=== PATIENT | female | born 1955 | race Caucasian/White ===

== ENCOUNTER 2024-02-19 12:07 | Emergency (ER) | payer MEDICARE, MEDICAID, SELFPAY ==
[2024-02-19 12:26] VITALS: BP 150/83; PULSE 78; TEMP 36.5; O2SAT 96; BMI 36.6
--- NOTE | 2024-02-19 12:40 | XR_ITS ---
The [address] [address] Patient Name: POLO REYES MRN: [id number] date: 1955 Sex: F Assigned Patient Location: ER Current Patient Location: ER Accession/Order Number: [id number] Exam Date: 02/19/2024 12:45 Report Date: 02/19/2024 13:06 At the request of: JAMES MOCK Procedure: XR knee LT 3V PROCEDURE: XR knee LT 3V HISTORY: pain, no injury ; lateral knee pain COMPARISON: None. FINDINGS: BONES:Mild narrowing of the anterior and medial joint spaces. Large periarticular degenerative osteophytes involving the medial and lateral compartments; small involving the anterior compartment. SOFT TISSUES:No visible soft tissue swelling. EFFUSION:Small-moderate joint effusion. OTHER: Negative. XR/XR knee LT 3V IMPRESSION: 1. Moderate to marked degenerative joint disease. No acute bone abnormality. 2. Small to moderate joint effusion. Electronically authenticated by: PURNIMA ERICKSON Date: 02/19/2024 13:06
--- NOTE | 2024-02-19 12:47 | ED.LOWEXI1 ---
HPI HPI - Extremity Injury (Lower) General Chief Complaint: Extremity Injury, Lower Stated Complaint: L KNEE PAIN Time Seen by Provider: 02/19/24 12:40 Source: patient Mode of arrival: walk-in History of Present Illness HPI Narrative: 68-year-old female presents to the ED for left knee pain. She is indicating the lateral and inferior aspects that is hurting. She states that she Head: Got down on her hands and knees to do some cleaning after decorating for [place] and she felt a sudden pain in the left knee. She had not fallen. About a week ago though she fell at work and sustained a bruise on her left thigh but her knee itself had not been hurting until 2 days ago when she was at home. She has not had previous issues with that knee. No other joint has been hurting. She is able to stand on it but it is bending that makes it hurt more. Related Data Previous Rx's ?Medication ?Instructions ?Recorded etodolac 400 mg tablet 400 mg PO Q8H PRN pain #20 tabs 02/19/24 Allergies Allergy/AdvReac Type Severity Reaction Status Date / Time acetaminophen (From Wygesic) Allergy Swelling Verified 02/19/24 12:37 of Lip/Tongue/Throat ampicillin Allergy Rash Verified 02/19/24 12:37 codeine Allergy Hives Verified 02/19/24 12:37 hydrocodone (From Vicodin) Allergy Hives Verified 02/19/24 12:37 latex Allergy Hives Verified 02/19/24 12:37 meclizine (From Antivert) Allergy Hives Verified 02/19/24 12:37 oxycodone (From Percocet) Allergy hi Verified 02/19/24 12:37 Penicillins Allergy Rash Verified 02/19/24 12:37 propoxyphene (From Wygesic) Allergy Swelling Verified 02/19/24 12:37 of Lip/Tongue/Throat pseudoephedrine (From Allergy Unknown Verified 02/19/24 12:37 Sudafed) rofecoxib (From Vioxx) Allergy Swelling Verified 02/19/24 12:37 of Lip/Tongue/Throat baxtra Allergy Swelling Uncoded 02/19/24 12:37 of Lip/Tongue/Throat Opioid HPI Opioid Management Most Recent Pain and Opioid Data: No Data to Display Review of Systems ROS Narrative A ten point review of systems is negative except as noted above. PFSH PFSH Social History Little interest or pleasure in doing things: not at all Feeling down, depressed, or hopeless: not at all Exam Narrative Exam Narrative: Nurses note and vital signs reviewed and patient is not hypoxic. General: The patient appears well and in no apparent distress. Patient is resting comfortably on cart. Skin: Warm, dry, no pallor noted. There is no rash noted. Head: Normocephalic, atraumatic Eye: Normal conjunctiva, no drainage Ears, Nose, Mouth, and Throat: oral mucosa is moist. Nares patent. Cardiovascular: Regular Rate and Rhythm Respiratory: Patient is in no distress, no accessory muscle use, lungs are clear to auscultation, no wheezing, rales or rhonchi Back: non-tender, no CVA tenderness bilaterally to percussion. GI: Soft and nontender Musculoskeletal: The left knee is examined. There is no bruise or visible swelling. The knee joint is stable on motion. Anterior and posterior drawer test are normal. She has a bruise on the mid medial aspect of her thigh. No hematoma. Neurological: A&O, normal speech Psychiatric: Cooperative Constitutional Vital Signs, click to edit/add: Last Vital Signs Temp 97.7 F 02/19/24 12:26 Pulse 78 02/19/24 12:26 Resp 18 02/19/24 12:26 BP 150/83 H 02/19/24 12:26 Pulse Ox 96 02/19/24 12:26 Course Vital Signs Vital signs: Vital Signs Temperature 97.7 F 02/19/24 12:26 Pulse Rate 78 02/19/24 12:26 Respiratory Rate 18 02/19/24 12:26 Blood Pressure 150/83 H 02/19/24 12:26 Pulse Oximetry 96 02/19/24 12:26 Temperature 97.7 F 02/19/24 12:26 Pulse Rate 78 02/19/24 12:26 Respiratory Rate 18 02/19/24 12:26 Blood Pressure 150/83 H 02/19/24 12:26 Pulse Oximetry 96 02/19/24 12:26 MDM - Extremity Injury (Lower) MDM Narrative Medical decision making narrative: X-ray findings are discussed with the patient. Knee immobilizer applied, application checked by me and found to be appropriate, she is neurovascularly intact. Appointment made for the patient to see Dr. Sanches at noon on February 21. Treatment diagnosis and follow-up were discussed with the patient. Differential Diagnosis Differential diagnosis: Likely acute internal derangement of knee and other (Fracture) Imaging Data Knee x-ray: Radiologist's impression: ITS Impressions Knee X-Ray 02/19/24 12:40 IMPRESSION: 1. Moderate to marked degenerative joint disease. No acute bone abnormality. 2. Small to moderate joint effusion. Electronically authenticated by: PURNIMA ERICKSON Date: 02/19/2024 13:06 Discharge Plan Discharge Chief Complaint: Extremity Injury, Lower Clinical Impression: Acute internal derangement of knee Patient Disposition: Home, Self-Care Time of Disposition Decision: 13:17 Condition: Good Mode of Transportation: Private Vehicle Prescriptions / Home Meds: New etodolac 400 mg tablet 400 mg PO Q8H PRN (Reason: pain) Qty: 20 0RF Print Language: Frisian Instructions: Knee Sprain (ED) Referrals: Purnima Sanches MD [Physician] - 02/22/24 12:00 pm
--- NOTE | 2024-02-19 13:36 | PC.NURSE ---
Pain to left knee, skin to left leg pink and warm and all pulses present to left leg and foot. No redness, swelling or bruising noted.
== END 2024-02-19 14:03 | disposition home or self-care (01) ==
PROVIDERS: Emergency Provider Emergency Medicine
DX: M23.92 Unspecified internal derangement of left knee (principal)
CPT/HCPCS: 73562; 99283

== ENCOUNTER 2024-07-27 10:59 | Outpatient (OUT) | payer MEDICARE, MEDICAID, SELFPAY | END 2024-07-27 11:00 | disposition home or self-care (01) | LOC: US 11:02 | PROVIDERS: PCP Family Medicine; Visit Provider Family Medicine | DX: R60.0 Localized edema (principal) | CPT/HCPCS: 93971 ==